=== PATIENT | female | born 1975 | race Hispanic/Latino ===

== ENCOUNTER 2020-02-29 21:22 | Emergency (ER) | payer BC ==
--- OUTSIDE RECORDS SUMMARY | 2020-02-29 21:24 | XMS REPORT | Continuity of Care Document ---
:1975 Author Organization [facility] t Address [address] [place] [address] Care Team Providers Name Role Phone Unavailable Unavailable Unavailable Payers Payer Name Policy Type Policy Number Effective Date Expiration Date S ource Problems This patient has no known problems. Allergies, Adverse Reactions, Alerts Allergy Allergy Status Severity Reaction(s) Onset Inactive Treating Comm ents Source Name Type Date Date Clinician No Known DA Active U [facility] 00:00: d [facility] 00 [facility] Medications This patient has no known medications. Procedures This patient has no known procedures. Results This patient has no known results.
--- NOTE | 2020-02-29 22:13 | RAD REPORT ---
EXAM DESCRIPTION: RAD - Chest Single View - 02/29/2020 10:04 pm CLINICAL HISTORY: CHEST PAIN Chest pain. COMPARISON: No comparisons FINDINGS: Portable technique limits examination quality. The lungs are grossly clear. The heart is normal in size. No displaced fractures. IMPRESSION: No acute intrathoracic process suspected.
[2020-02-29 22:22] LABS: Protime INR 0.95
[2020-02-29 22:39] LABS: ALT/SGPT 25 U/L (12-78); AST/SGOT 17 U/L (15-37); Albumin 3.7 g/dL (3.4-5.0); Alkaline Phosphatase 113 U/L (45-117); BUN Blood Urea Nitrogen 11 mg/dL (7-18); Bicarbonate 26 mmol/L (21-32); Bilirubin Direct 0.1 mg/dL (0-0.2); Bilirubin Total 0.6 mg/dL (0.2-1.0); Glucose Level 84 mg/dL (74-106); Magnesium 2.4 mg/dL (1.8-2.4); NT PRO-BNP 42 pg/mL (<125); Potassium 3.4 mmol/L (3.5-5.1); Protein, Total 7.8 g/dL (6.4-8.2); Sodium Level 138 mmol/L (136-145); Troponin (Emerg Dept Use Only) < 0.02 ng/mL (0.0-0.045)
[2020-02-29 23:06] LABS: Absolute Lymphocytes (CBC) 1.4 K/uL (0.7-4.9); Basophils % 0.8 % (0-1.3); Hematocrit 41.3 % (36.0-45.0); Lymphocytes % 22.1 % (15.3-44.8); MPV 11.3 fL (7.6-11.3); RBC Red Blood Cell Count 4.76 M/uL (3.86-4.86)
--- NOTE | 2020-03-01 02:45 | ER ---
Nurse's Notes [facility] Name: Whit Fowler Age: 44 yrs Sex: Female : 1975 Arrival Date: 02/29/2020 Time: 21:27 Bed 8 Private MD: Diagnosis: Chest pain, unspecified Presentation: 02/28 21:30 Chief complaint: Patient states: L sided chest pain started today at 1100. Has ca1 progressed throughout the day. Intermittent, non-radiating, described as burning has been frequent in the last 2 hours. Denies injury to chest. Denies history of heart conditions. Denies cough. Coronavirus screen: Client denies travel out of the [place] in the last 14 days. At this time, the client does not indicate any symptoms associated with coronavirus-19. The client denies any previous COVID testing. Ebola Screen: Patient negative for fever greater than or equal to 101.5 degrees Fahrenheit, and additional compatible Ebola Virus Disease symptoms Patient denies exposure to infectious person. Patient denies travel to an Ebola-affected area in the 21 days before illness onset. No symptoms or risks identified at this time. Initial Sepsis Screen: Does the patient meet any 2 criteria? No. Patient's initial sepsis screen is negative. Does the patient have a suspected source of infection? No. Patient's initial sepsis screen is negative. Risk Assessment: Do you want to hurt yourself or someone else? Patient reports no desire to harm self or others. Onset of symptoms was February 29, 2020. 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 - Social history:: Smoking status: Patient reports the use of cigarette tobacco products, denies chronic smoking, but will smoke occasionally. Screenin:45 Abuse screen: Denies threats or abuse. Nutritional screening: No deficits noted. jb4 Tuberculosis screening: No symptoms or risk factors identified. Fall Risk None identified. Assessment: 21:45 General: Appears in no apparent distress. comfortable, Behavior is calm, cooperative, jb4 appropriate for age. Pain: Complains of pain in chest Pain does not radiate. Pain currently is 0 out of 10 on a pain scale. Quality of pain is described as dull, Pain began 11:00 Is intermittent. Neuro: Level of Consciousness is awake, alert, obeys commands, Oriented to person, place, time, situation. Cardiovascular: Patient's skin is warm and dry. Rhythm is sinus rhythm. Respiratory: Airway is patent Respiratory effort is even, unlabored, Respiratory pattern is regular, symmetrical. GI: No signs and/or symptoms were reported involving the gastrointestinal system. : No signs and/or symptoms were reported regarding the genitourinary system. EENT: No signs and/or symptoms were reported regarding the EENT system. Derm: Skin is intact, Skin is pink, warm \T\ dry. Musculoskeletal: Circulation, motion, and sensation intact. Range of motion: intact in all extremities. 23:00 Reassessment: Patient appears in no apparent distress at this time. Patient and/or jb4 family updated on plan of care and expected duration. Pain level reassessed. Patient is alert, oriented x 3, equal unlabored respirations, skin warm/dry/pink. PT reports that the provider has not yet been in to see her. Provider informed that all lab results and radiology results are back and asked to speak with the patient. 23:58 Reassessment: Patient appears in no apparent distress at this time. Patient and/or jb4 family updated on plan of care and expected duration. Pain level reassessed. Patient is alert, oriented x 3, equal unlabored respirations, skin warm/dry/pink. PT ambulated to and from restroom with steady gait. 03/01 01:00 Reassessment: Patient appears in no apparent distress at this time. Patient and/or jb4 family updated on plan of care and expected duration. Pain level reassessed. Patient is alert, oriented x 3, equal unlabored respirations, skin warm/dry/pink. 02:00 Reassessment: Patient appears in no apparent distress at this time. Patient and/or jb4 family updated on plan of care and expected duration. Pain level reassessed. Patient is alert, oriented x 3, equal unlabored respirations, skin warm/dry/pink. 02:53 Reassessment: Patient appears in no apparent distress at this time. Patient and/or jb4 family updated on plan of care and expected duration. Pain level reassessed. Patient is alert, oriented x 3, equal unlabored respirations, skin warm/dry/pink. Vital Signs: 02/28 21:30 BP 136 / 107; Pulse 78; Resp 16 S; Temp 97.4(TE); Pulse Ox 99% on R/A; Weight 87.09 kg ca1 (R); Height 5 ft. 3 in. (160.02 cm) (R); Pain 0/10; 22:15 BP 135 / 106; Pulse 84; Resp 17; Pulse Ox 98% on R/A; jb4 23:00 BP 130 / 101; Pulse 80; Resp 16; Pulse Ox 97% on R/A; jb4 03/01 00:00 BP 137 / 97; Pulse 74; Resp 14; Pulse Ox 98% on R/A; jb4 01:10 BP 137 / 96; Pulse 81; Resp 20; Pulse Ox 98% on R/A; ll2 02:00 BP 136 / 94; Pulse 66; Resp 18; Pulse Ox 94% on R/A; jb4 02/28 21:30 Body Mass Index 34.01 (87.09 kg, 160.02 cm) ca1 ED Course: 02/28 21:27 Patient arrived in ED. am2 21:33 Triage completed. ca1 21:34 Arm band placed on right wrist. ca1 21:45 Patient has correct armband on for positive identification. Placed in gown. Bed in low jb4 position. Call light in reach. Side rails up X 1. electronic device monitor on. Pulse ox on. NIBP on. 21:45 Patient maintains SpO2 saturation greater than 95% on room air. jb4 21:47 Dario Ferro, RN is Primary Nurse. jb4 22:04 XRAY Chest (1 view) In Process Unspecified. EDMS 22:14 Initial lab(s) drawn, by me, sent to lab. Inserted saline lock: 20 gauge in right jb4 forearm, using aseptic technique. Blood collected. 22:33 Lex Galloway MD is Attending Physician. 7 23:57 CT Chest For PE Angio In Process Unspecified. EDMS 03/01 01:00 No provider procedures requiring assistance completed. IV discontinued, intact, jb4 bleeding controlled, No redness/swelling at site. Pressure dressing applied. Administered Medications: 02/28 23:25 CANCELLED (Other Intervention Used): Tylenol 1000 mg PO once [facility] 23:27 Not Given (Patient Refused): morphine 2 mg IVP once; RASS on ADMIN: Combtv4, Very jb4 Agttd3, Agttd2, Rstlss1, AlertClm0, Drwsy-1, Lt Sdtn-2, Mod Sdtn-3, Dp Sdtn-4, UnArsble-5 23:27 Not Given (Patient Refused): Zofran (Ondansetron) 4 mg IVP once; over 2 minutes jb4 Outcome: 03/01 02:45 Discharge ordered by . [facility] 02:57 Discharged to home ambulatory. jb4 02:57 Condition: stable 02:57 Discharge instructions given to patient, Instructed on discharge instructions, follow up and referral plans. Demonstrated understanding of instructions, follow-up care. 02:57 Patient left the ED. jb4 Signatures: Dispatcher [employer] EDMS Dario Ferro RN RN jb4 Gloria Sales am2 Brittni Mallory RN RN ca1 Nohemi Mas RN RN 2 Lex Galloway MD MD 7 Corrections: (The following items were deleted from the chart) 02/28 23:23 23:00 Reassessment: Patient appears in no apparent distress at this time. Patient jb4 and/or family updated on plan of care and expected duration. Pain level reassessed. Patient is alert, oriented x 3, equal unlabored respirations, skin warm/dry/pink. jb4
--- NOTE | 2020-03-01 02:45 | EDPHYS ---
Physician Documentation [facility] Name: Whit Fowler Age: 44 yrs Sex: Female : 1975 Arrival Date: 02/29/2020 Time: 21:27 Bed 8 Private MD: ED Physician Lex Galloway HPI: 02/28 23:41 This 44 yrs old Female presents to ER via Ambulatory with complaints of Chest mh7 Pain > 30 y/o. 23:41 The patient or guardian reports chest pain that is located primarily in the anterior mh7 chest wall, left. 23:52 Onset: today, at 11:00. The pain does not radiate. Associated signs and symptoms: 7 Pertinent negatives: abdominal pain, cough, diaphoresis, dizziness, headache, lower extremity pain, lower extremity swelling, lightheadedness, nausea, near syncope, palpitations, recent travel, shortness of breath, syncope, vomiting. The chest pain is described as dull. The chest pain is described as sharp. Duration: The patient or guardian reports multiple episodes, that are intermittent, that wax and wane, with no pattern. Modifying factors: The symptoms are alleviated by nothing. the symptoms are aggravated by nothing. Severity of pain: At its worst the pain was moderate today, in the emergency department the pain has improved moderately. 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 - Social history:: Smoking status: Patient reports the use of cigarette tobacco products, denies chronic smoking, but will smoke occasionally. ROS: 23:52 Constitutional: Negative for fever, chills, and weight loss, Eyes: Negative for injury, mh7 pain, redness, and discharge, ENT: Negative for injury, pain, and discharge, Neck: Negative for injury, pain, and swelling, Respiratory: Negative for shortness of breath, cough, wheezing, and pleuritic chest pain, Abdomen/GI: Negative for abdominal pain, nausea, vomiting, diarrhea, and constipation, Back: Negative for injury and pain, : Negative for injury, bleeding, discharge, and swelling, MS/Extremity: Negative for injury and deformity, Skin: Negative for injury, rash, and discoloration, Neuro: Negative for headache, weakness, numbness, tingling, and seizure, Psych: Negative for depression, anxiety, suicide ideation, homicidal ideation, and hallucinations, Allergy/Immunology: Negative for hives, rash, and allergies, Endocrine: Negative for neck swelling, polydipsia, polyuria, polyphagia, and marked weight changes, Hematologic/Lymphatic: Negative for swollen nodes, abnormal bleeding, and unusual bruising. Exam: 23:52 Constitutional: This is a well developed, well nourished patient who is awake, alert, mh7 and in no acute distress. Head/Face: Normocephalic, atraumatic. Eyes: Pupils equal round and reactive to light, extra-ocular motions intact. Lids and lashes normal. Conjunctiva and sclera are non-icteric and not injected. Cornea within normal limits. Periorbital areas with no swelling, redness, or edema. Neck: Trachea midline, no thyromegaly or masses palpated, and no cervical lymphadenopathy. Supple, full range of motion without nuchal rigidity, or vertebral point tenderness. No Meningismus. Chest/axilla: Normal chest wall appearance and motion. Nontender with no deformity. No lesions are appreciated. Cardiovascular: Regular rate and rhythm with a normal S1 and S2. No gallops, murmurs, or rubs. Normal PMI, no JVD. No pulse deficits. Respiratory: Lungs have equal breath sounds bilaterally, clear to auscultation and percussion. No rales, rhonchi or wheezes noted. No increased work of breathing, no retractions or nasal flaring. Abdomen/GI: Soft, non-tender, with normal bowel sounds. No distension or tympany. No guarding or rebound. No evidence of tenderness throughout. Back: No spinal tenderness. No costovertebral tenderness. Full range of motion. Skin: Warm, dry with normal turgor. Normal color with no rashes, no lesions, and no evidence of cellulitis. MS/ Extremity: Pulses equal, no cyanosis. Neurovascular intact. Full, normal range of motion. Neuro: Awake and alert, GCS 15, oriented to person, place, time, and situation. Cranial nerves II-XII grossly intact. Motor strength 5/5 in all extremities. Sensory grossly intact. Cerebellar exam normal. Normal gait. Psych: Awake, alert, with orientation to person, place and time. Behavior, mood, and affect are within normal limits. Vital Signs: 21:30 BP 136 / 107; Pulse 78; Resp 16 S; Temp 97.4(TE); Pulse Ox 99% on R/A; Weight 87.09 kg ca1 (R); Height 5 ft. 3 in. (160.02 cm) (R); Pain 0/10; 22:15 BP 135 / 106; Pulse 84; Resp 17; Pulse Ox 98% on R/A; jb4 23:00 BP 130 / 101; Pulse 80; Resp 16; Pulse Ox 97% on R/A; jb4 03/01 00:00 BP 137 / 97; Pulse 74; Resp 14; Pulse Ox 98% on R/A; jb4 01:10 BP 137 / 96; Pulse 81; Resp 20; Pulse Ox 98% on R/A; ll2 02:00 BP 136 / 94; Pulse 66; Resp 18; Pulse Ox 94% on R/A; jb4 02/28 21:30 Body Mass Index 34.01 (87.09 kg, 160.02 cm) ca1 MDM: 02/28 23:22 Patient medically screened. [facility] 03/01 02:42 Differential diagnosis: acute myocardial infarction, acute pericarditis, anxiety, [facility] coronary artery disease chest wall pain, congestive heart failure costochondritis, myocarditis, pericarditis, pneumonia, pneumothorax, pulmonary embolus. HEART Score: History: Slightly Suspicious (0), ECG: Normal (0), Age: > 45 and < 65 years (1), Risk Factors: 1 or 2 risk factors (1), [Hypertension] Troponin: < or = 1 x Normal Limit (0), Total Score = 2. Data reviewed: vital signs, nurses notes, lab test result(s), cardiac enzymes, CBC, electrolytes, urinalysis, EKG, radiologic studies, CT scan, plain films. Data interpreted: Pulse oximetry: on room air is 95 %. Interpretation: normal. Counseling: I had a detailed discussion with the patient and/or guardian regarding: the historical points, exam findings, and any diagnostic results supporting the discharge/admit diagnosis, the presence of at least one elevated blood pressure reading (>120/80) during this emergency department visit, lab results, radiology results, the need for outpatient follow up, to return to the emergency department if symptoms worsen or persist or if there are any questions or concerns that arise at home. 02/28 21:48 Order name: Basic Metabolic Panel; Complete Time: 23:02 [facility] 02/28 21:48 Order name: CBC with Diff; Complete Time: 23:23 [facility] 02/28 21:48 Order name: LFT's; Complete Time: 23:02 [facility] 02/28 21:48 Order name: Magnesium; Complete Time: 23:02 [facility] 02/28 21:48 Order name: NT PRO-BNP; Complete Time: 23:02 [facility] 02/28 21:48 Order name: PT-INR; Complete Time: 00:01 [facility] 02/28 21:48 Order name: Troponin (emerg Dept Use Only); Complete Time: 23:02 [facility] 02/28 21:48 Order name: XRAY Chest (1 view); Complete Time: 23:02 [facility] 02/28 23:26 Order name: CT Chest For PE Angio [facility] 02/28 23:30 Order name: D-Dimer; Complete Time: 00:01 [facility] 03/01 01:16 Order name: Troponin I; Complete Time: 02:36 [facility] 02/28 21:48 Order name: EKG; Complete Time: 21:49 [facility] 02/28 21:48 Order name: Cardiac monitoring; Complete Time: 21:58 [facility] 02/28 21:48 Order name: EKG - Nurse/Tech; Complete Time: 21:58 [facility] 02/28 21:48 Order name: IV Saline Lock; Complete Time: 22:14 [facility] 02/28 21:48 Order name: Labs collected and sent; Complete Time: 22:14 [facility] 02/28 21:48 Order name: O2 Per Protocol; Complete Time: 21:58 [facility] 02/28 21:48 Order name: O2 Sat Monitoring; Complete Time: 21:59 jb4 Administered Medications: 02/28 23:25 CANCELLED (Other Intervention Used): Tylenol 1000 mg PO once [facility] 23:27 Not Given (Patient Refused): morphine 2 mg IVP once; RASS on ADMIN: Combtv4, Very jb4 Agttd3, Agttd2, Rstlss1, AlertClm0, Drwsy-1, Lt Sdtn-2, Mod Sdtn-3, Dp Sdtn-4, UnArsble-5 23:27 Not Given (Patient Refused): Zofran (Ondansetron) 4 mg IVP once; over 2 minutes jb4 Disposition: 03/01/20 02:45 Discharged to Home. Impression: Chest pain, unspecified. - Condition is Stable. - Discharge Instructions: Nonspecific Chest Pain, [id number]. - Medication Reconciliation Form, Thank You Letter, Antibiotic Education, Prescription Opioid Use form. - Follow up: Private Physician; When: 1 - 2 days; Reason: Worsening of condition, Recheck today's complaints, Continuance of care, Re-evaluation by your physician. - Problem is new. - Symptoms have improved. Signatures: Dispatcher [employer] [facility] Dario Ferro RN RN jb4 Brittni Mallory RN RN ca1 Lex Galloway MD MD mh7 Corrections: (The following items were deleted from the chart) 23:25 23:24 Tylenol 1000 mg PO once ordered. [place] [id number] 23:30 23:24 D-DIMER+COAG.LAB.BRZ ordered. [facility] 03/01 02:57 02:45 03/01/2020 02:45 Discharged to Home. Impression: Chest pain, unspecified. jb4 Condition is Stable. Forms are Medication Reconciliation Form, Thank You Letter, Antibiotic Education, Prescription Opioid Use. Follow up: Private Physician; When: 1 - 2 days; Reason: Worsening of condition, Recheck today's complaints, Continuance of care, Re-evaluation by your physician. Problem is new. Symptoms have improved. 7
[2020-03-01 03:16] VITALS: TEMP 97.4
[2020-03-01 03:27] VITALS: BP 136/94; O2SAT 94
--- NOTE | 2020-03-01 15:38 | RAD REPORT ---
EXAM DESCRIPTION: Chest For Pe Angio CLINICAL HISTORY: 44 years Female CHEST PAIN COMPARISON: None. TECHNIQUE: Contiguous axial images obtained through the chest during the infusion of IV contrast. Re formatted images obtained. MIP reformatted images obtained. This exam was performed according to our department optimization program which includes automated exp osure control, adjustment of the mA and/or kv according to patient size and/or use of iterative recon struction technique. FINDINGS: The posterior inferior lung bases are incompletely imaged. The visualized upper abdominal organs appear unremarkable. No pericardial effusion. The mediastinum appears unremarkable. No aneurysmal dilatation of the thoracic aorta. No pulmonary emboli are identified. Mild atelectatic changes. No consolidating infiltrates or pleural effusions. No pneumothorax. IMPRESSION: No pulmonary emboli are identified. Electronically signed by: Mac Waldron MD 03/01/2020 12:13 AM CDT Due to temporary technical issues with the PACS/Fluency reporting system, reports are being signed by the in house radiologist without review as a courtesy to ensure prompt reporting. The interpreting r adiologist is fully responsible for the content of the report.
--- NOTE | 2020-03-02 07:15 | EKG ---
Test Date: 2020-02-29 Test Time: 21:59:09 Collections Curator: URSULA MEASUREMENT RESULTS: Intervals: Rate: 67 LA: 164 QRSD: 80 QT: 418 QTc: 441 [place]: P: 49 LA: 164 QRS: 41 T: 44 INTERPRETIVE STATEMENTS: Normal sinus rhythm Normal ECG No previous ECG available for comparison Electronically Signed On 03-02-20 07:13:42 CDT by Goldy Kearns
== END 2020-03-01 02:57 | disposition home or self-care (01) ==
LOC: ER 21:22
DX: R07.9 Chest pain, unspecified (principal); I10 Essential (primary) hypertension; F17.210 Nicotine dependence, cigarettes, uncomplicated
CPT/HCPCS: 93005; 85025; 80048; 36415; 83735; 85610; 85379; 80076; 84484 ×2; 83880; 71275; 71045; 99285; Q9967

== ENCOUNTER 2020-11-18 00:09 | Emergency (ER) | payer BC ==
--- OUTSIDE RECORDS SUMMARY | 2020-11-18 00:15 | XMS REPORT | Continuity of Care Document ---
:1975 Author Organization [facility] t Address [address] [place] [address] Care Team Providers Name Role Phone Lab, [facility] Pankaj I Attending Clinician Unavailable Chidi Carr PA-C Attending Clinician Payers Payer Name Policy Type Policy Number Effective Date Expiration Date S ource Problems This patient has no known problems. Allergies, Adverse Reactions, Alerts Allergy Allergy Status Severity Reaction(s) Onset Inactive Treating Comm ents Source Name Type Date Date Clinician No Known DA Active U [facility] 2[facility]20 [facility] 00:00: d [address] Medications This patient has no known medications. Procedures This patient has no known procedures. 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
[2020-11-18] MEDS ORDERED: ALBUTEROL INHALER 60 PUFF/8 GM IH ONE (00:59)
[2020-11-18] MEDS ORDERED: HYDROCODONE/CHLORPHEN 5 ML/OSYR ONE (00:59)
--- NOTE | 2020-11-18 01:22 | ER ---
Nurse's Notes [facility] Name: Whit Folwer Age: 45 yrs Sex: Female : 1975 Arrival Date: 11/18/2020 Time: 00:10 Bed 6 Private MD: Diagnosis: Cough;Pneumonia due to SARS-associated coronavirus Presentation: 11/18 00:27 Chief complaint: Patient states: Reports being diagnosed with covid Saturday reported she ea started getting really short of breath today. States it's worse when she is still. Coronavirus screen: shortness of breath, Client presents with at least one sign or symptom that may indicate coronavirus-19. Ebola Screen: No symptoms or risks identified at this time. Initial Sepsis Screen: Does the patient meet any 2 criteria? No. Patient's initial sepsis screen is negative. Does the patient have a suspected source of infection? No. Patient's initial sepsis screen is negative. Risk Assessment: Do you want to hurt yourself or someone else? Patient reports no desire to harm self or others. Onset of symptoms was November 18, 2020. 00:27 Method Of Arrival: Ambulatory ea 00:27 Acuity: TIEN 3 ea Triage Assessment: 00:33 General: Appears uncomfortable, Behavior is appropriate for age. Pain: Complains of ea pain in sore throat. Respiratory: Reports shortness of breath at rest Onset: The symptoms/episode began/occurred today, the patient has mild shortness of breath. 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 - Social history:: Smoking status: Patient denies any tobacco usage or history of. Screenin:31 Abuse screen: Denies threats or abuse. Nutritional screening: No deficits noted. ea Tuberculosis screening: No symptoms or risk factors identified. Fall Risk None identified. Assessment: 00:34 General: Appears uncomfortable, Behavior is appropriate for age. Neuro: Level of ea Consciousness is awake, alert, obeys commands, Oriented to person, place, time. Cardiovascular: Patient's skin is warm and dry. Respiratory: Airway is patent Respiratory effort is even, unlabored, Respiratory pattern is regular, symmetrical, Parent/caregiver reports the patient having shortness of breath. Derm: Skin is pink, warm \T\ dry. 01:30 Reassessment: Patient and/or family updated on plan of care and expected duration. Pain ea level reassessed. Patient is alert, oriented x 3, equal unlabored respirations, skin warm/dry/pink. Discharge instruction given to patient verbalized the understanding of instruction. Pt left ED ambulatory accompanied by family. Vital Signs: 00:27 BP 127 / 93; Pulse 93; Resp 20; Temp 98.7; Pulse Ox 95% on R/A; Weight 86.18 kg; Height ea 5 ft. 3 in. (160.02 cm); 01:31 BP 125 / 60; Pulse 88; Resp 18; Pulse Ox 98% on R/A; ea 00:27 Body Mass Index 33.66 (86.18 kg, 160.02 cm) ea ED Course: 00:10 Patient arrived in ED. bp1 00:12 Solo Cochran PA is PHCP. jr8 00:12 Jose Holland MD is Attending Physician. jr8 00:27 Callie Laguna, ELIJAH is Primary Nurse. ea 00:31 Triage completed. ea 00:32 Patient has correct armband on for positive identification. Bed in low position. Call ea light in reach. Side rails up X2. 00:32 Arm band placed on right wrist. Patient placed in an exam room, on a stretcher, on ea pulse oximetry. 00:54 XRAY Chest (1 view) In Process Unspecified. EDMS 01:31 No provider procedures requiring assistance completed. Patient did not have IV access ea during this emergency room visit. Administered Medications: 00:40 Drug: Tussionex Pennkinetic ER (chlorpheniramine-hydrocodone) Suspension 5 ml Route: PO;ea 01:32 Follow up: Response: No adverse reaction ea 00:40 Drug: Albuterol HFA Inhaler 2 puffs Route: Inhalation; ea Outcome: 01:21 Discharge ordered by . jr8 01:31 Discharged to home ambulatory, with family. ea 01:31 Condition: stable 01:31 Discharge instructions given to patient, Instructed on discharge instructions, follow up and referral plans. medication usage, Demonstrated understanding of instructions, follow-up care, medications, Prescriptions given X 1. 01:31 Patient left the ED. ea Signatures: Dispatcher [employer] EDSolo Sterling PA PA jr8 Callie Laguna, RN RN Julianna Alvarez [facility]
--- NOTE | 2020-11-18 01:22 | EDPHYS ---
Physician Documentation [facility] Name: Whit Fowler Age: 45 yrs Sex: Female : 1975 Arrival Date: 11/18/2020 Time: 00:10 Bed 6 Private MD: ED Physician Jose Holland HPI: 11/18 00:48 This 45 yrs old Female presents to ER via Ambulatory with complaints of jr8 Shortness Of Breath, Sore Throat. 00:48 The patient has shortness of breath at rest. Onset: The symptoms/episode began/occurred jr8 gradually, 1 week(s) ago. Duration: The symptoms are intermittent. The patient's shortness of breath is aggravated by coughing. Associated signs and symptoms: Pertinent positives: non-productive cough, fever. Severity of symptoms: At their worst the symptoms were moderate in the emergency department the symptoms are unchanged. The patient has not experienced similar symptoms in the past. The patient has been recently seen by a physician:. Patient stated that she started with symptoms last Saturday. Was swabbed on Saturday and recently got her results as being COVID-19 positive. Has been on Zithromax and steroids which she is currently taking but still is having coughing fits that is causing her to be short of breath . 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 - Social history:: Smoking status: Patient denies any tobacco usage or history of. ROS: 00:48 Eyes: Negative for injury, pain, redness, and discharge, Neck: Negative for injury, jr8 pain, and swelling, Cardiovascular: Negative for chest pain, palpitations, and edema, Abdomen/GI: Negative for abdominal pain, nausea, vomiting, diarrhea, and constipation, Back: Negative for injury and pain, MS/Extremity: Negative for injury and deformity, Skin: Negative for injury, rash, and discoloration, Neuro: Negative for headache, weakness, numbness, tingling, and seizure. 00:48 Constitutional: Positive for body aches, fatigue, fever. 00:48 ENT: Positive for sore throat. 00:48 Respiratory: Positive for cough, shortness of breath. Exam: 00:48 Constitutional: This is a well developed, well nourished patient who is awake, alert, jr8 and in no acute distress. Eyes: Pupils equal round and reactive to light, extra-ocular motions intact. Lids and lashes normal. Conjunctiva and sclera are non-icteric and not injected. Cornea within normal limits. Periorbital areas with no swelling, redness, or edema. ENT: Nares patent. No nasal discharge, no septal abnormalities noted. Tympanic membranes are normal and external auditory canals are clear. Oropharynx with no redness, swelling, or masses, exudates, or evidence of obstruction, uvula midline. Mucous membranes moist. Neck: Trachea midline, no thyromegaly or masses palpated, and no cervical lymphadenopathy. Supple, full range of motion without nuchal rigidity, or vertebral point tenderness. No Meningismus. Cardiovascular: Regular rate and rhythm with a normal S1 and S2. No gallops, murmurs, or rubs. Normal PMI, no JVD. No pulse deficits. Respiratory: Lungs have equal breath sounds bilaterally. Mild expiratory wheezing noted on right upper lung field. No increased work of breathing, no retractions or nasal flaring. Abdomen/GI: Soft, non-tender, with normal bowel sounds. No distension or tympany. No guarding or rebound. No evidence of tenderness throughout. Back: No spinal tenderness. No costovertebral tenderness. Full range of motion. Skin: Warm, dry with normal turgor. Normal color with no rashes, no lesions, and no evidence of cellulitis. MS/ Extremity: Pulses equal, no cyanosis. Neurovascular intact. Full, normal range of motion. Neuro: Awake and alert, GCS 15, oriented to person, place, time, and situation. Cranial nerves II-XII grossly intact. Motor strength 5/5 in all extremities. Sensory grossly intact. Vital Signs: 00:27 BP 127 / 93; Pulse 93; Resp 20; Temp 98.7; Pulse Ox 95% on R/A; Weight 86.18 kg; Height ea 5 ft. 3 in. (160.02 cm); 01:31 BP 125 / 60; Pulse 88; Resp 18; Pulse Ox 98% on R/A; ea 00:27 Body Mass Index 33.66 (86.18 kg, 160.02 cm) ea MDM: 00:12 Patient medically screened. jr8 00:52 Data reviewed: vital signs, nurses notes, radiologic studies, plain films. Data jr8 interpreted: Pulse oximetry: on room air is 95 %. Interpretation: normal. Counseling: I had a detailed discussion with the patient and/or guardian regarding: the historical points, exam findings, and any diagnostic results supporting the discharge/admit diagnosis, radiology results, the need for outpatient follow up, a family practitioner, to return to the emergency department if symptoms worsen or persist or if there are any questions or concerns that arise at home. 01:19 ED course: Patient feeling much better. VS stable and oxygen at or above 95%. No jr8 shortness of breath at this time and cough has improved. Will send home on cough medicine. Patient has Spo2 monitor at home and will continue to monitor that as well. Knows to come back if worse . 11/18 00:22 Order name: XRAY Chest (1 view) jr8 Administered Medications: 00:40 Drug: Tussionex Pennkinetic ER (chlorpheniramine-hydrocodone) Suspension 5 ml Route: PO;ea 01:32 Follow up: Response: No adverse reaction ea 00:40 Drug: Albuterol HFA Inhaler 2 puffs Route: Inhalation; ea Disposition: 02:02 Co-signature as Attending Physician, Jose Holland MD. rn Disposition Summary: 11/18/20 01:21 Discharge Ordered Location: Home jr8 Problem: new jr8 Symptoms: have improved jr8 Condition: Stable jr8 Diagnosis - Cough jr8 - Pneumonia due to SARS-associated coronavirus jr8 Followup: jr8 - With: Private Physician - When: 2 - 3 days - Reason: Recheck today's complaints, Continuance of care, Re-evaluation by your physician Discharge Instructions: - Discharge Summary Sheet jr8 - Cough, Adult jr8 - COVID-19 jr8 Forms: - Medication Reconciliation Form jr8 - Thank You Letter jr8 - Antibiotic Education jr8 - Prescription Opioid Use jr8 Prescriptions: - promethazine-DM 6.25-15 mg/5 mL Oral syrup - take 5 milliliter by ORAL route every 4-6 hours as needed, not to exceed 30 mL jr8 in 24 hours; 120 milliliter; Refills: 0, Product Selection Permitted Signatures: Dispatcher [employer] EDJose Michaud MD MD rn Solo Cochran PA PA jr8 Callie Laguna RN RN ea
[2020-11-18 01:37] VITALS: TEMP 98.7
[2020-11-18 01:38] VITALS: BP 125/60; O2SAT 98
--- NOTE | 2020-11-18 08:37 | RAD REPORT ---
EXAM DESCRIPTION: RAD - Chest Single View - 11/18/2020 12:54 am CLINICAL HISTORY: covid;Cough Chest pain. COMPARISON: Chest Single View dated 02/29/2020 FINDINGS: Portable technique limits examination quality. Mild bilateral interstitial lung opacities are present most compatible with viral infection/ bronchit is. The heart is normal in size. No displaced fractures.
== END 2020-11-18 01:31 | disposition home or self-care (01) ==
LOC: ER 00:09
DX: U07.1 COVID-19 (principal); J12.82 Pneumonia due to coronavirus disease 2019; I10 Essential (primary) hypertension
CPT/HCPCS: 71045; 99284

== ENCOUNTER 2020-11-20 13:31 | Inpatient (IN) | payer BC ==
--- OUTSIDE RECORDS SUMMARY | 2020-11-20 13:47 | XMS REPORT | Continuity of Care Document ---
:1975 Author Organization [facility] t Address [address] [place] [address] Care Team Providers Name Role Phone Lab, [facility] Pankaj I Attending Clinician Unavailable Chidi Carr PA-C Attending Clinician Payers Payer Name Policy Type Policy Number Effective Date Expiration Date S ource Problems This patient has no known problems. Allergies, Adverse Reactions, Alerts Allergy Allergy Status Severity Reaction(s) Onset Inactive Treating Comm ents Source Name Type Date Date Clinician No Known DA Active U [facility] 2[facility]20 [place] [facility] 00:00: d [address] Medications This patient has no known medications. Procedures This patient has no known procedures. 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
[2020-11-20 17:04] LABS: Protime INR 1.07
[2020-11-20 17:05] LABS: Absolute Lymphocytes (CBC) 0.6 K/uL (0.7-4.9); Basophils % 0.1 % (0-1.3); Hematocrit 38.5 % (36.0-45.0); Lymphocytes % 7.8 % (15.3-44.8); MPV 10.3 fL (7.6-11.3)
[2020-11-20 17:14] LABS: ALT/SGPT 89 U/L (12-78); AST/SGOT 83 U/L (15-37); Albumin 3.1 g/dL (3.4-5.0); Alkaline Phosphatase 167 U/L (45-117); BUN Blood Urea Nitrogen 11 mg/dL (7-18); Bicarbonate 29 mmol/L (21-32); Bilirubin Direct 0.1 mg/dL (0-0.2); Bilirubin Total 0.6 mg/dL (0.2-1.0); Glucose Level 95 mg/dL (74-106); Magnesium 2.4 mg/dL (1.8-2.4); NT PRO-BNP 77 pg/mL (<125); Potassium 4.1 mmol/L (3.5-5.1); Protein, Total 7.5 g/dL (6.4-8.2); Sodium Level 137 mmol/L (136-145); Troponin (Emerg Dept Use Only) < 0.02 ng/mL (0.0-0.045)
[2020-11-20] MEDS ORDERED: ONDANSETRON 4 MG/2 ML VIAL IV PRN (17:30)
[2020-11-20] MEDS ORDERED: ALBUTEROL INHALER 60 PUFF/8 GM IH PRN (17:30)
[2020-11-20] MEDS ORDERED: ACETAMINOPHEN 500 MG TAB PO PRN (17:30)
--- NOTE | 2020-11-20 17:45 | ER ---
Nurse's Notes [facility] Name: Whit Fowler Age: 45 yrs Sex: Female : 1975 Arrival Date: 11/20/2020 Time: 13:32 Bed 20 Private MD: Diagnosis: Shortness of breath;Pneumonia due to SARS-associated coronavirus Presentation: 11/20 13:52 Chief complaint: Patient states: Covid+ 11/14/2020. Was here Saturday and was prescribed ca1 Albuterol and cough medicines. Today, just not feeling well, feeling worse. Feels weak, SOB, reports chest pains x 3 days, hurts to breathe. Coronavirus screen: Client reports previous positive COVID test result. Date of collection: November 14, 2020 Staff notified of need for isolation. Ebola Screen: Patient negative for fever greater than or equal to 101.5 degrees Fahrenheit, and additional compatible Ebola Virus Disease symptoms Patient denies exposure to infectious person. Patient denies travel to an Ebola-affected area in the 21 days before illness onset. No symptoms or risks identified at this time. Initial Sepsis Screen: Does the patient meet any 2 criteria? No. Patient's initial sepsis screen is negative. Does the patient have a suspected source of infection? No. Patient's initial sepsis screen is negative. Risk Assessment: Do you want to hurt yourself or someone else? Patient reports no desire to harm self or others. 13:52 Method Of Arrival: Ambulatory ca1 13:52 Acuity: TIEN 3 ca1 19:57 Onset of symptoms was November 14, 2020. 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 Flu vaccine is up to date. - Social history:: Smoking status: Patient denies any tobacco usage or history of. Screenin:36 Abuse screen: Denies threats or abuse. Denies injuries from another. Nutritional kg screening: No deficits noted. Tuberculosis screening: No symptoms or risk factors identified. Fall Risk No fall in past 12 months (0 pts). No secondary diagnosis (0 pts). IV access (20 points). Ambulatory Aid- None/Bed Rest/Nurse Assist (0 pts). Gait- Normal/Bed Rest/Wheelchair (0 pts) Mental Status- Oriented to own ability (0 pts). Total Liu Fall Scale indicates No Risk (0-24 pts). Assessment: 16:31 General: Appears distressed, uncomfortable, Behavior is appropriate for age, anxious. kg Pain: Complains of pain in chest Pain currently is 8 out of 10 on a pain scale. at worst was 10 out of 10 on a pain scale. level that patient reports is acceptable is 3 out of 10 on a pain scale. Quality of pain is described as burning, aching. Neuro: No deficits noted. Cardiovascular: No deficits noted. Heart tones S1 S2 Capillary refill < 3 seconds. Respiratory: Reports shortness of breath at rest on exertion cough that is productive, Airway is patent Trachea midline Respiratory effort is even, labored, Respiratory pattern is symmetrical, Sputum is thick, clear white Breath sounds with crackles in left posterior lower lobe, right posterior middle lobe and right posterior lower lobe the patient has moderate shortness of breath. GI: Bowel sounds present X 4 quads. Reports diarrhea, nausea. : No deficits noted. EENT: Reports difficulty swallowing. Musculoskeletal: Reports weakness in Generalized. Vital Signs: 13:52 BP 107 / 81; Pulse 86; Resp 18 S; Temp 98.8(TE); Pulse Ox 97% on R/A; Weight 88.9 kg ca1 (M); Height 5 ft. 3 in. (160.02 cm) (R); Pain 8/10; 16:30 BP 104 / 73; Pulse 85; Resp 20; Pulse Ox 97% on 2 lpm NC; kg 17:00 BP 110 / 76; Pulse 84; Resp 20; Pulse Ox 96% on R/A; kg 17:30 BP 90 / 78; Pulse 84; Resp 20; Pulse Ox 95% on 2 lpm NC; kg 18:00 BP 106 / 76; Pulse 85; Resp 20; Pulse Ox 97% on R/A; kg 18:30 BP 116 / 84; Pulse 85; Resp 20; Pulse Ox 100% ; kg 19:00 BP 107 / 79; Pulse 83; Resp 20; Pulse Ox 100% ; kg 13:52 Body Mass Index 34.72 (88.90 kg, 160.02 cm) ca1 ED Course: 13:32 Patient arrived in ED. ds1 13:55 Triage completed. ca1 13:55 Arm band placed on right wrist. ca1 16:09 Braeden Rodas NP is PHCP. pm1 16:09 Wilberto Dennis MD is Attending Physician. pm1 16:16 Adela Lindsey, RN is Primary Nurse. kg 16:31 Inserted saline lock: 20 gauge in right antecubital area, using aseptic technique. kg 16:37 Patient has correct armband on for positive identification. Bed in low position. Call kg light in reach. Side rails up X2. Adult w/ patient. 16:37 No provider procedures requiring assistance completed. kg 17:43 Mary Carr MD is Hospitalizing Provider. pm1 18:38 Ferritin Sent. kg 18:38 Ferritin Sent. kg 18:38 C-Reactive Protein Sent. kg 18:38 CBC with Automated Diff Sent. kg 18:38 CBC with Automated Diff Sent. kg 18:38 Comprehensive Metabolic Panel Sent. kg 18:39 C-Reactive Protein Sent. kg 18:39 Comprehensive Metabolic Panel Sent. kg 18:39 CT Chest For PE Angio Sent. kg 18:39 XRAY Chest (1 view) Sent. kg 18:39 Basic Metabolic Panel Sent. kg 19:56 Report given to Edu NAVA ICU. kg Administered Medications: 18:10 Drug: Rocephin (cefTRIAXone) 1 grams Route: IV; Rate: per protocol; Site: right kg antecubital; 18:10 Drug: Aspirin Chewable Tablet 324 mg Route: PO; kg 18:10 Drug: Tussionex Pennkinetic ER (chlorpheniramine-hydrocodone) Suspension 5 ml Route: PO;kg 18:18 Drug: Decadron - Dexamethasone 10 mg Route: IVP; Site: right antecubital; kg 18:20 Drug: Pepcid (famotidine) 20 mg Route: IVP; Site: right antecubital; kg 18:20 Drug: Zithromax (azithromycin) 500 mg Route: IVPB; Infused Over: 1 hrs; Site: right kg antecubital; 18:30 Drug: Albuterol HFA Inhaler 4 puffs Route: Inhalation; kg Outcome: 17:43 Decision to Hospitalize by Provider. pm1 19:56 Admitted to ICU accompanied by tech, via wheelchair, room 3, Report called to Edu hall RN 19:56 Condition: stable 19:56 Instructed on the need for admit. 20:11 Patient left the ED. isabel Signatures: Eli Bean ds1 Braeden Rodas, CRISSY CAST IRON DRAIN PIPE LAYER pm1 Brittni Mallory RN RN ca1 Adela Lindsey RN RN kg
--- NOTE | 2020-11-20 17:45 | EDPHYS ---
Physician Documentation [facility] Name: Whit Fowler Age: 45 yrs Sex: Female : 1975 Arrival Date: 11/20/2020 Time: 13:32 Bed 20 Private MD: ED Physician Wilberto Dennis HPI: 11/20 18:00 This 45 yrs old Female presents to ER via Ambulatory with complaints of pm1 Weakness, Chest Pain, Covid +. 18:00 The patient or guardian reports cough, with productive sputum, Clear, difficulty pm1 breathing, Shortness of breath, chest pain for 3 days with breathing. Onset: The symptoms/episode began/occurred 10 day(s) ago. Severity of symptoms: in the emergency department the symptoms are actually worse. Modifying factors: The symptoms are alleviated by nothing, the symptoms are aggravated by nothing. Associated signs and symptoms: Pertinent positives: chest pain, diarrhea, fever, body aches. The patient has been recently seen at the [facility] Emergency Department, last week, for similar complaints prescribed cough medication and albuterol. 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 Flu vaccine is up to date. - Social history:: Smoking status: Patient denies any tobacco usage or history of. ROS: 18:00 Eyes: Negative for injury, pain, redness, and discharge, ENT: Negative for injury, pm1 pain, and discharge, Neck: Negative for injury, pain, and swelling. 18:00 Back: Negative for injury and pain, : Negative for injury, bleeding, discharge, and swelling, MS/Extremity: Negative for injury and deformity, Skin: Negative for injury, rash, and discoloration, Neuro: Negative for headache, weakness, numbness, tingling, and seizure. 18:00 Constitutional: Positive for body aches, fever, poor PO intake. 18:00 Cardiovascular: Positive for chest pain. 18:00 Respiratory: Positive for cough, dyspnea on exertion, shortness of breath. 18:00 Abdomen/GI: Positive for diarrhea, Negative for abdominal pain, nausea and vomiting. 18:00 All other systems are negative. Exam: 18:00 Constitutional: This is a well developed, well nourished patient who is awake, alert, pm1 and in no acute distress. Head/Face: Normocephalic, atraumatic. 18:00 Skin: Warm, dry with normal turgor. Normal color with no rashes, no lesions, and no evidence of cellulitis. MS/ Extremity: Pulses equal, no cyanosis. Neurovascular intact. Full, normal range of motion. 18:00 Eyes: Exam is negative for acute changes, Periorbital structures: appear normal, no acute changes, Extraocular movements: no acute changes, Conjunctiva: no acute changes, no injection, Sclera: no acute changes, icterus, is not appreciated. 18:00 ENT: Exam is negative for acute changes, Mouth: Lips: normal, Oral mucosa: normal, pink and intact, moist, Posterior pharynx: no acute changes, Voice: no acute changes. 18:00 Cardiovascular: Rate: normal, Rhythm: regular, Pulses: no pulse deficits are appreciated, Edema: is not appreciated. 18:00 Respiratory: Exam negative for acute changes, respiratory distress, shortness of breath, Breath sounds: are clear throughout. 18:00 Abdomen/GI: Inspection: abdomen appears normal, Palpation: abdomen is soft and non-tender. 18:00 Neuro: Exam negative for acute changes, Orientation: is normal, Mentation: is normal, Motor: is normal, moves all fours. Vital Signs: 13:52 BP 107 / 81; Pulse 86; Resp 18 S; Temp 98.8(TE); Pulse Ox 97% on R/A; Weight 88.9 kg ca1 (M); Height 5 ft. 3 in. (160.02 cm) (R); Pain 8/10; 16:30 BP 104 / 73; Pulse 85; Resp 20; Pulse Ox 97% on 2 lpm NC; kg 17:00 BP 110 / 76; Pulse 84; Resp 20; Pulse Ox 96% on R/A; kg 17:30 BP 90 / 78; Pulse 84; Resp 20; Pulse Ox 95% on 2 lpm NC; kg 18:00 BP 106 / 76; Pulse 85; Resp 20; Pulse Ox 97% on R/A; kg 18:30 BP 116 / 84; Pulse 85; Resp 20; Pulse Ox 100% ; kg 19:00 BP 107 / 79; Pulse 83; Resp 20; Pulse Ox 100% ; kg 13:52 Body Mass Index 34.72 (88.90 kg, 160.02 cm) ca1 MDM: 16:12 Patient medically screened. [email or web address] 17:39 Physician consultation: Mary Carr MD in the emergency department to see patient at pm1 17:35, Will admit for observation. 17:40 Data reviewed: vital signs. Data interpreted: Pulse oximetry: on room air is 97 %. pm1 Interpretation: normal. 11/20 16:29 Order name: Basic Metabolic Panel [facility] 11/20 16:29 Order name: CBC with Diff; Complete Time: 18:00 [facility] 11/20 16:29 Order name: LFT's; Complete Time: 17:18 [facility] 11/20 16:29 Order name: Magnesium; Complete Time: 17:18 [facility] 11/20 16:29 Order name: NT PRO-BNP; Complete Time: 17:18 [facility] 11/20 16:29 Order name: PT-INR; Complete Time: 17:10 [facility] 11/20 16:29 Order name: Troponin (emerg Dept Use Only); Complete Time: 17:18 [facility] 11/20 16:29 Order name: Basic Metabolic Panel; Complete Time: 17:18 [facility] 11/20 16:39 Order name: Blood Culture Adult (2) [facility] 11/20 16:39 Order name: Ferritin [facility] 11/20 16:39 Order name: CRP [facility] 11/20 16:40 Order name: Blood Culture [facility] 11/20 17:09 Order name: CBC Smear Scan; Complete Time: 18:00 [facility] 11/20 17:35 Order name: Comprehensive Metabolic Panel [facility] 11/20 16:29 Order name: XRAY Chest (1 view) [facility] 11/20 16:29 Order name: CT Chest For PE Angio [facility] 11/20 17:35 Order name: C-Reactive Protein [facility] 11/20 17:35 Order name: C-Reactive Protein [facility] 11/20 17:35 Order name: CBC with Automated Diff [facility] 11/20 17:35 Order name: CBC with Automated Diff [facility] 11/20 17:35 Order name: Comprehensive Metabolic Panel [facility] 11/20 17:35 Order name: Ferritin [facility] 11/20 17:35 Order name: Ferritin [facility] 11/20 18:10 Order name: CT; Complete Time: 18:21 [facility] 11/20 19:46 Order name: RAD; Complete Time: 20:05 [facility] 11/20 13:56 Order name: EKG; Complete Time: 13:56 [facility] 11/20 13:56 Order name: EKG - Nurse/Tech; Complete Time: 13:58 ca1 11/20 16:29 Order name: Cardiac monitoring; Complete Time: 18:39 [facility] 11/20 16:29 Order name: IV Saline Lock; Complete Time: 18:39 [facility] 11/20 16:29 Order name: Labs collected and sent; Complete Time: 18:39 [facility] 11/20 16:29 Order name: O2 Per Protocol; Complete Time: 18:39 [facility] 11/20 16:29 Order name: O2 Sat Monitoring; Complete Time: 18:39 [facility] 11/20 17:35 Order name: CONS Physician Consult; Complete Time: 18:39 [facility] 11/20 17:35 Order name: Regular; Complete Time: 18:38 EDMS Administered Medications: 18:10 Drug: Rocephin (cefTRIAXone) 1 grams Route: IV; Rate: per protocol; Site: right kg antecubital; 18:10 Drug: Aspirin Chewable Tablet 324 mg Route: PO; kg 18:10 Drug: Tussionex Pennkinetic ER (chlorpheniramine-hydrocodone) Suspension 5 ml Route: PO;kg 18:18 Drug: Decadron - Dexamethasone 10 mg Route: IVP; Site: right antecubital; kg 18:20 Drug: Pepcid (famotidine) 20 mg Route: IVP; Site: right antecubital; kg 18:20 Drug: Zithromax (azithromycin) 500 mg Route: IVPB; Infused Over: 1 hrs; Site: right kg antecubital; 18:30 Drug: Albuterol HFA Inhaler 4 puffs Route: Inhalation; kg Disposition: 11/21 13:18 Co-signature as Attending Physician, Wilberto Dennis MD I agree with the assessment and [facility] plan of care. Disposition Summary: 11/20/20 17:43 Hospitalization Ordered Hospitalization Status: Observation pm1 Provider: Mary Carr pm1 Condition: Stable pm1 Problem: new pm1 Symptoms: have improved pm1 Bed/Room Type: Standard pm1 Location: Intensive Care Unit(11/20/20 17:46) tt3 Room Assignment: 3-(11/20/20 17:46) tt3 Diagnosis - Pneumonia due to SARS-associated coronavirus pm1 Forms: - Medication Reconciliation Form pm1 - SBAR form pm1 Signatures: Dispatcher [employer] EDWilberto Mart MD MD cha Marinas, Patrick, PARTY PLAN SALES DIRECTOR PARTY PLAN SALES DIRECTOR pm1 Brittni Mallory RN RN ca1 Jamari Alberts tt3 Adela Lindsey RN RN kg Corrections: (The following items were deleted from the chart) 11/20 17:46 17:43 Telemetry/MedSurg (observation) pm1 tt3 17:46 17:43 pm1 tt3 18:21 17:43 Coronavirus infection, unspecified pm1 pm1 18:22 17:44 Shortness of breath pm1 pm1
[2020-11-20 17:56] LABS: Platelet Estimate ADEQ; White Blood Cell Scan OK (OK)
[2020-11-20 17:57] LABS: Blood Morphology Comment NOT SEEN (NOT SEEN)
[2020-11-20] MEDS ORDERED: NA CHLORIDE 0.9% 1,000 ML IV SCH (18:00)
[2020-11-20] MEDS ORDERED: ASPIRIN 81 MG CHEWABLE TABLET ONE (18:02)
[2020-11-20] MEDS ORDERED: dexAMETHasone 10 MG/ML VIAL ONE (18:02)
[2020-11-20] MEDS ORDERED: HYDROCODONE/CHLORPHEN 5 ML/OSYR ONE (18:02)
[2020-11-20] MEDS ORDERED: CEFTRIAXONE/SWI 1gm 1 GM/10 ML SYR ONE (18:03)
[2020-11-20] MEDS ORDERED: AZITHROMYCIN 500 MG INJ IVPB ONE (18:03)
[2020-11-20] MEDS ORDERED: NA CHLORIDE 0.9% 250 ML ONE (18:03)
--- NOTE | 2020-11-20 18:09 | RAD REPORT ---
EXAM DESCRIPTION: CT - Chest For Pe Angio - 11/20/2020 5:53 pm CLINICAL HISTORY: Cough;Chest pain;Dyspnea COMPARISON: Chest For Pe Angio dated 02/29/2020 TECHNIQUE: Dynamically enhanced 3 mm thick images of the chest were obtained during administration o f approximately 150mL Isovue 370 IV contrast. Coronal and oblique MIP reconstruction images were gene rated and reviewed. Exam utilizes a protocol to evaluate the pulmonary arterial tree. Imaging was rep eated due to excessive motion on the initial acquisition. All CT scans are performed using dose optimization technique as appropriate and may include automated exposure control or mA/KV adjustment according to patient size. FINDINGS: No pulmonary emboli are identified. The aorta as imaged shows no acute or suspicious finding. No pericardial thickening or effusion. Extensive bilateral, primarily peripheral ground-glass opacification seen. In the current clinical en vironment, primary consideration would be a COVID-19 pneumonia. This needs correlation with testing/h istory. No cavitation or suspicious mass. Non COVID viral infiltrates are possible. Noninfectious teresa eolar edema would be additional possibility. No pleural effusion or pleural thickening. No mediastinal or hilar suspicious masses. No chest wall masses or abnormal axillary lymphadenopathy. IMPRESSION: No pulmonary emboli identified. Bilateral ground-glass opacification is present. In the current clinical environment, primary conside ration would be COVID-19 pneumonia. Non COVID viral infiltrates are also possible. Noninfectious alve olar edema from numerous etiologies can give a similar pattern.
--- NOTE | 2020-11-20 19:45 | RAD REPORT ---
EXAM DESCRIPTION: RAD - Chest Single View - 11/20/2020 7:01 pm CLINICAL HISTORY: COUGH COMPARISON: Portable November 18 TECHNIQUE: AP portable chest image was obtained 11/20/2020 7:01 pm . FINDINGS: Lung volumes are low. Interstitial and alveolar opacities are present findings are slightl y worse than the November 18 imaging. In the current clinical environment, bilateral COVID-19 pneumonia wo uld be a primary consideration and needs correlation with testing. Non COVID viral pneumonia is are p ossible as well. Pattern is not typical for bacterial pneumonia or typical pulmonary edema presentati on. Heart and vasculature are normal. No measurable pleural effusion and no pneumothorax. No acute mary ellen [place] abnormality seen. No acute aortic findings suspected. IMPRESSION: Bilateral airspace opacities in the lung alvarez along with interstitial opacification. COVID-19 pneumonia would be a primary consideration and needs correlation with clinical presentation and testing.
[2020-11-20 20:12] LABS: C-Reactive Protein 80.9 mg/L (<3.00); Ferritin 409.2 ng/mL (8-388)
[2020-11-20] MEDS ORDERED: METHYLPREDNISOLONE 40 MG INJ IV SCH (21:00)
[2020-11-20] MEDS: CODEINE 30MG/APAP 300MG TAB PO SCH ×2 (21:04→21:26)
[2020-11-20] MEDS: BENZONATATE 100 MG CAP PO PRN (21:08)
[2020-11-20 21:39] VITALS: BMI 34.7
[2020-11-20] MEDS ORDERED: FAMOTIDINE 20 MG/2 ML VIAL IV SCH (23:00)
[2020-11-20] MEDS ORDERED: MORPHINE 2 MG/ML SYR IV ONE (23:20)
[2020-11-20] MEDS: APIXABAN 5 MG TABLET PO SCH (23:28)
--- NOTE | 2020-11-20 23:31 | P.HP ---
Certification for Inpatient Patient admitted to: Inpatient With expected LOS: >2 Midnights Patient will require the following post-hospital care: None Practitioner: I am a practitioner with admitting privileges, knowledge of patient current condition, hospital course, and medical plan of care. Services: Services provided to patient in accordance with Admission requirements found in Title 42 Section 412.3 of the Code of Federal Regulations Patient History Date of Service: 11/20/20 Reason for admission: COVID-19 pneumonia History of Present Illness: Patient is a 45yo who was admitted to the hospital with dyspnea and chest discomfort; patient was found to be COVID-19 positive a few days ago. Patient has got worse over the last few days. She has been very fatigued and she feels dehydrated. She has been having persisting coughing with dyspnea. She is having pain on taking deep inspiration. She came into the emergency room because she was feeling worse. She was brought into the emergency room by her sister who is a nurse at our hospital and the night time structural mill supervisor. Patient's inflammatory markers were elevated. Her room air O2 sats were between 91-95%. Her respiratory rate was in the mid 20s. Her CT scan showed alveolar edema. This is most likely related to could a pneumonia. She had priorly also having some pleuritic chest pain. She is having pain on deep inspiration. Her oxygen saturations drop into the high 80s when she starts coughing. She does recover. Decision was made to admit her to the hospital for further evaluation. Allergies No Known Allergies Allergy (Verified 11/20/20 21:02) Home Medications: Lisinopril [Zestril] 10 mg PO DAILY 11/20/20 - Past Medical/Surgical History Has patient received pneumonia vaccine in the past: No Diabetic: No -: Hypertension -: Hypothyroidism -: Gallbladder Sx - Family History Father Medical History: Hypertension Mother Medical History: Hypertension, Diabetes - Social History Smoking Status: Never smoker Alcohol use: No CD- Drugs: No Caffeine use: Yes Place of Residence: Home Review of Systems 10-point ROS is otherwise unremarkable Physical Examination - Vital Signs Temperature: 98.8 F Blood Pressure: 107/79 Pulse: 83 Respirations: 20 Pulse Ox (%): 91 - Physical Exam General: Alert, In no apparent distress, Oriented x3, Cachectic HEENT: Atraumatic, PERRLA, Mucous membr. moist/pink, EOMI, Sclerae nonicteric Neck: Supple, 2+ carotid pulse no bruit, No LAD, Without JVD or thyroid abnormality Respiratory: Diminished, Crackles/rales Cardiovascular: Regular rate/rhythm, Normal S1 S2, Systolic murmur Gastrointestinal: Normal bowel sounds, Soft and benign, Non-distended, No tenderness Musculoskeletal: No clubbing, No swelling, No tenderness Integumentary: No rashes Neurological: Normal gait, Normal speech, Normal tone, Sensation intact, Cranial nerves 3-12 intact, Normal affect, Abnormal strength Lymphatics: No axilla or inguinal lymphadenopathy - Studies Laboratory Data (last 24 hrs) 11/20/20 16:40: PT 12.3, INR 1.07 11/20/20 16:40: WBC 7.40, Hgb 13.1, Hct 38.5, Plt Count 174 11/20/20 16:40: Sodium 137, Potassium 4.1, BUN 11, Creatinine 0.96, Glucose 95, Magnesium 2.4, Total Bilirubin 0.6, AST 83 H, ALT 89 H, Alkaline Phosphatase 167 H Assessment & Plan - Problems (Diagnosis) (1) Pneumonia due to COVID-19 virus Current Visit: Yes Status: Acute (2) Pleuritic chest pain Current Visit: Yes Status: Acute - Plan 1. Continue with IV steroids & Baricitinib 2. Monitor inflammatory markers 3. Repeat chest x-ray is symptoms are progressively worsening 4. O2 per protocol 5. Pulmonary consultation 6. Continue with albuterol inhaler therapy; also supportive care; cough suppressant; prone positioning & incentive spirometer 7. GI and DVT prophylaxis Discharge Plan: Home Plan to discharge in: Greater than 2 days - Advance Directives Does patient have a Living Will: No Does patient have a Durable POA for Healthcare: No - Code Status/Comfort Care Code Status Assessed: Yes Code Status: Full Code Critical Care: No Time Spent Managing PTS Care (In Minutes): 45
[2020-11-20] MEDS ORDERED: SODIUM CHLORIDE 0.9% 10ML INJ IV PRN (23:39)
[2020-11-20] MEDS ORDERED: PANTOPRAZOLE 40 MG INJ IVP ONE (23:39)
[2020-11-20] MEDS ORDERED: PANTOPRAZOLE 40 MG INJ ONE (23:55)
[2020-11-21] MEDS: MORPHINE 2 MG/ML SYR IV PRN ×2 (04:15→23:19)
[2020-11-21 06:11] LABS: Absolute Lymphocytes (CBC) 0.3 K/uL (0.7-4.9); Basophils % 0.1 % (0-1.3); Hematocrit 35.3 % (36.0-45.0); Lymphocytes % 3.9 % (15.3-44.8); MPV 10.3 fL (7.6-11.3); RBC Red Blood Cell Count 4.17 M/uL (3.86-4.86)
[2020-11-21 06:22] LABS: Albumin 2.6 g/dL (3.4-5.0); Bilirubin Total 0.8 mg/dL (0.2-1.0); C-Reactive Protein 91.4 mg/L (<3.00); Ferritin 1381.6 ng/mL (8-388); Potassium 4.2 mmol/L (3.5-5.1); Protein, Total 6.7 g/dL (6.4-8.2)
[2020-11-21] MEDS ORDERED: PANTOPRAZOLE 40MG TABLET PO SCH (06:30)
[2020-11-21] MEDS ORDERED: TRAMADOL HCL 50 MG TAB PO PRN (07:32)
[2020-11-21] MEDS ORDERED: ALPRAZOLAM 0.25 MG TABLET PO PRN (07:32)
--- NOTE | 2020-11-21 07:45 | P.PN ---
Subjective Date of Service: 11/21/20 Chief Complaint: COVID-19 pneumonia Subjective: Other (Patient now on 3 L per nasal cannula.) Physical Examination - Vital Signs Temperature: 97.5 F Blood Pressure: 98/76 Pulse: 60 Respirations: 19 Pulse Ox (%): 91 - Studies Laboratory Data (last 24 hrs) 11/20/20 16:40: PT 12.3, INR 1.07 11/20/20 16:40: WBC 7.40, Hgb 13.1, Hct 38.5, Plt Count 174 11/20/20 16:40: Sodium 137, Potassium 4.1, BUN 11, Creatinine 0.96, Glucose 95, Magnesium 2.4, Total Bilirubin 0.6, AST 83 H, ALT 89 H, Alkaline Phosphatase 167 H Assessment & Plan Discharge Plan: Home Physician Review Additional Text: Physical exam: General: Alert, no acute distress. Currently on 3 L per nasal cannula. HEENT: Neck supple. Respiratory: Patient does not appear in any respiratory distress. Currently on 3 L per nasal cannula. Cardiovascular: Regular rate and rhythm on monitor. Gastrointestinal: Soft, no distention. No pain noted Musculoskeletal: No clubbing, No swelling, No tenderness Integumentary: No rashes Neurological: Good range of motion. No focal deficits. Impression: Chest pain secondary to bilateral Covid 19 pneumonia with hypoxia Elevated liver function may be related to medication Hypertension Hypothyroidism Obesity, BMI 34.7 Plan: Chest pain secondary to bilateral Covid 19 pneumonia with hypoxia: Patient now on 3 L per nasal cannula. Continue to wean off. Will increase IV steroids to 3 times a day. Patient remains on Eliquis for DVT prophylaxis. LFTs elevated. This may be related to Baricitinib. Will discuss with Pharmacy and Pulmonary. May need to hold medication. Will check Tylenol level, Hepatitis panel and Liver US. Will need to monitor and trend LFTs. Encourage proning, ambulation, and incentive spirometer. Await further recommendations from pulmonology. Will start vitamin supplementation. Will monitor closely. Anticipate improvement over the next 1 to 3 days. Patient will likely require home oxygen at discharge. Elevated liver function may be related to medication: This may be related to Baricitinib. Will discuss with pharmacy and pulmonary. Hold medication at this time. Will check Tylenol level, hepatitis panel and liver ultrasound. Continue to monitor and trend LFTs. Hypertension: Blood pressure stable off medication at this time. Hypothyroidism: Will need to restart medication but need to verify home medication. Obesity, BMI 34.7: Will address lifestyle modification education. DVT prophylaxis: Eliquis CODE STATUS: Full code Advanced care [email or web address] minutes: Patient desires to go home at discharge Time Spent Managing Pts Care (In Minutes): 55
[2020-11-21] MEDS: ASCORBIC ACID 500 MG TABLET PO SCH ×4 (08:23→19:45)
[2020-11-21] MEDS: THIAMINE HCL 100 MG TABLET PO SCH ×2 (08:23→19:45)
[2020-11-21] MEDS: METHYLPREDNISOLONE 125 MG INJ IV SCH ×3 (08:23→19:45)
[2020-11-21] MEDS: ZINC SULFATE 220 MG CAP PO SCH (08:23)
[2020-11-21] MEDS: VITAMIN D 1000 UNIT TAB PO SCH (08:23)
[2020-11-21] MEDS: APIXABAN 5 MG TABLET PO SCH (08:23)
[2020-11-21] MEDS ORDERED: PROMETHAZINE-DM 5 ML OSYR PO PRN (08:55)
--- NOTE | 2020-11-21 08:57 | P.CNS ---
Date of Consult: 11/21/20 Reason for Consult: Respiratory failure from rubio virus pneumonia Chief Complaint: COVID-19 pneumonia History of Present Illness: Patient is 45 years of age admitted with respiratory failure from rubio virus she has not been vaccinated in feeling fatigued dehydrated persistent coughing dyspnea liver function tests are markedly elevated apparently she has was taking acetaminophen at home Allergies No Known Allergies Allergy (Verified 11/20/20 21:02) Home Medications: Lisinopril [Zestril] 10 mg PO DAILY 11/20/20 Synthroid 11/20/20 - Past Medical/Surgical History Diabetic: No -: Hypertension -: Hypothyroidism -: Gallbladder Sx - Family History Father Medical History: Hypertension Mother Medical History: Hypertension, Diabetes - Social History Smoking Status: Current some day smoker Alcohol use: No CD- Drugs: No Caffeine use: Yes Place of Residence: Home Review of Systems General: Weakness Respiratory: Cough, Shortness of Breath Physical Examination Temp Pulse Resp BP Pulse Ox 97.5 F 60 19 98/76 91 11/21/20 07:50 11/21/20 07:50 11/21/20 07:50 11/21/20 07:50 11/21/20 07:50 Laboratory Data (last 24 hrs) 11/20/20 16:40: PT 12.3, INR 1.07 11/20/20 16:40: WBC 7.40, Hgb 13.1, Hct 38.5, Plt Count 174 11/20/20 16:40: Sodium 137, Potassium 4.1, BUN 11, Creatinine 0.96, Glucose 95, Magnesium 2.4, Total Bilirubin 0.6, AST 83 H, ALT 89 H, Alkaline Phosphatase 167 H - Problems (1) Pneumonia due to COVID-19 virus Current Visit: Yes Status: Acute Plan: Patient is 45 years of age admitted with respiratory failure from coronal virus complaining of severe persistent coughing spells labs reviewed liver function tests have been markedly elevated patient has been taking acetaminophen at home change to Lovenox Dc Eliquis oxygenation satisfactory immunotherapy is contraindicated due to her abnormal liver function testing liver ultrasound pending CT scan shows bilateral interstitial changes
[2020-11-21] MEDS ORDERED: ENOXAPARIN 40 MG/0.4 ML SQ SCH ×2 (09:00→21:00)
[2020-11-21] MEDS ORDERED: BARICITINIB 2 MG TABLET PO SCH (09:00)
[2020-11-21] MEDS: DULERA 200/5 (MOMETASONE/FORMOTEROL) INHALER IH SCH ×2 (09:59→19:45)
[2020-11-21] MEDS: FAMOTIDINE 20 MG TAB PO SCH ×2 (09:59→19:45)
--- NOTE | 2020-11-21 10:30 | EKG ---
Test Date: 2020-11-20 Test Time: 14:01:54 Button Grader: SAPNA MEASUREMENT RESULTS: Intervals: Rate: 83 [place]: 146 QRSD: 68 QT: 370 QTc: 434 [place]: P: 21 [place]: 146 QRS: 29 T: 33 INTERPRETIVE STATEMENTS: Normal sinus rhythm Normal ECG Compared to ECG 02/29/2020 21:59:09 No significant changes Electronically Signed On 11-21-20 10:29:14 CDT by Goldy Kearns
[2020-11-21] MEDS: BENZONATATE 100 MG CAP PO PRN (12:14)
--- NOTE | 2020-11-21 12:56 | RAD REPORT ---
EXAM DESCRIPTION: US - Liver Only - 11/21/2020 12:48 pm CLINICAL HISTORY: Elevated LFTs COMPARISON: No comparisons FINDINGS: The liver demonstrates diffuse fatty infiltration.No focal liver lesion or intrahepatic bi liary dilatation.No evidence of portal vein thrombosis. Spleen is normal size measuring 10 cm. IMPRESSION: Fatty liver.
[2020-11-21] MEDS ORDERED: FAMOTIDINE 20 MG TAB PO ONE (23:00)
[2020-11-22 03:55] LABS: Absolute Lymphocytes (CBC) 0.4 K/uL (0.7-4.9); Basophils % 0.3 % (0-1.3); Hematocrit 33.9 % (36.0-45.0); Lymphocytes % 3.8 % (15.3-44.8); MPV 10.5 fL (7.6-11.3); RBC Red Blood Cell Count 3.95 M/uL (3.86-4.86)
[2020-11-22 04:19] VITALS: TEMP 97.6
[2020-11-22 04:26] LABS: Albumin 2.5 g/dL (3.4-5.0); Bilirubin Total 0.3 mg/dL (0.2-1.0); C-Reactive Protein 36.7 mg/L (<3.00); Ferritin 651.2 ng/mL (8-388); Magnesium 2.5 mg/dL (1.8-2.4); Potassium 4.3 mmol/L (3.5-5.1); Protein, Total 6.5 g/dL (6.4-8.2)
--- NOTE | 2020-11-22 05:46 | P.PN ---
Subjective Date of Service: 11/22/20 Chief Complaint: COVID-19 pneumonia Subjective: Other (Patient reports improvement. Patient desires to go home today. Currently on 2 L per nasal cannula.) Physical Examination - Vital Signs Temperature: 97.6 F Blood Pressure: 89/61 Pulse: 54 Respirations: 22 Pulse Ox (%): 95 Assessment & Plan Discharge Plan: Home Plan to discharge in: 24 Hours Physician Review Additional Text: Liver US: COMPARISON: No comparisons FINDINGS: The liver demonstrates diffuse fatty infiltration.No focal liver lesion or intrahepatic biliary dilatation.No evidence of portal vein thrombosis. Spleen is normal size measuring 10 cm. IMPRESSION: Fatty liver. Physical exam: General: Alert, no acute distress. Currently on 2 L per nasal cannula. HEENT: Neck supple. Respiratory: Patient does not appear in any respiratory distress. Currently on 2 L per nasal cannula. Cardiovascular: Regular rate and rhythm on monitor. Gastrointestinal: Soft, no distention. No pain noted Musculoskeletal: No clubbing, No swelling, No tenderness Integumentary: No rashes Neurological: Good range of motion. No focal deficits. Impression: Chest pain secondary to bilateral Covid 19 pneumonia with hypoxia Elevated liver function may be related to medication with underlying fatty liver Hypertension Hypothyroidism Obesity, BMI 34.7 Plan: Chest pain secondary to bilateral Covid 19 pneumonia with hypoxia: Patient reports improvement. Currently on 2 L per nasal cannula. CRP and ferritin improved. Continue to monitor and trend levels. Patient was taken off Baricitinib yesterday due to elevated liver function test. LFTs improved. Liver ultrasound shows fatty liver. Encourage proning, ambulation, and inc entive spirometer. Continue IV steroids and vitamin supplementation. Will discuss with pulmonology. Patient desires to go home today. We will monitor the patient closely. If able to ambulate well without significant desaturations will consider discharge as early as today. Social work to help arrange for home oxygen. Await further recommendations from pulmonology. Elevated liver function may be related to medication with underlying fatty liver: Baricitinib was discontinued. LFTs show improvement. Fatty liver noted on ultrasound. Continue to trend LFTs. Hypertension: Blood pressure stable off medication. Continue to hold blood pressure medication Hypothyroidism: Continue with medication. Obesity, BMI 34.7: Will address lifestyle modification education. DVT prophylaxis: Lovenox CODE STATUS: Full code Advanced care [id number] minutes: Patient desires to go home at discharge Time Spent Managing Pts Care (In Minutes): 55
--- NOTE | 2020-11-22 07:40 | P.DS ---
Admission Date: 11/20/20 Discharge Date: 11/22/20 Disposition: ROUTINE DISCHARGE Discharge Condition: GOOD Reason for Admission: COVID-19 pneumonia Consultations: Pulmonary-Dr. Rivero Procedures: CT Chest: FINDINGS: No pulmonary emboli are identified. The aorta as imaged shows no acute or suspicious finding. No pericardial thickening or effusion. Extensive bilateral, primarily peripheral ground-glass opacification seen. In the current clinical environment, primary consideration would be a COVID-19 pneumonia. This needs correlation with testing/history. No cavitation or s uspicious mass. Non COVID viral infiltrates are possible. Noninfectious alveolar edema would be additional possibility. No pleural effusion or pleural thickening. No mediastinal or hilar suspicious masses. No chest wall masses or abnormal axillary lymphadenopathy. IMPRESSION: No pulmonary emboli identified. Bilateral ground-glass opacification is present. In the current clinical environment, primary consideration would be COVID-19 pneumonia. Non COVID viral infiltrates are also possible. Noninfectious alveolar edema from numerous etiologies can give a similar pattern. Liver US: COMPARISON: No comparisons FINDINGS: The liver demonstrates diffuse fatty infiltration.No focal liver lesion or intrahepatic biliary dilatation.No evidence of portal vein thrombosis. Spleen is normal size measuring 10 cm. IMPRESSION: Fatty liver. Medical problem list: Chest pain secondary to bilateral Covid 19 pneumonia with hypoxia Elevated liver function may be related to medication with underlying fatty liver Hypertension Hypothyroidism Obesity, BMI 34.7 Brief History of Present Illness: 45-year-old female presented to the emergency room with chest pain, shortness of breath. Patient was positive for COVID-19 a few days ago. Her symptoms have worsened. In the ER oxygen saturations appeared normal. CT scan showed significant pneumonia. Patient was admitted for treatment. Hospital Course: Patient presented with chest pain secondary to bilateral COVID-19 pneumonia with hypoxia. Patient had been tested positive prior to admission. Her symptoms required admission. During the course of her stay patient received IV steroids and baricitinib. Baricitinib had to be discontinued due to elevated liver function. Liver ultrasound showed fatty liver. Liver function improved once taken off baricitinib. Her condition has improved. At discharge she will continue with home oxygen to maintain sats above 93%. Patient currently on 2 L per nasal cannula. At discharge she will continue with prednisone 20 mg 1 pill twice daily for 7 days then 1 pill once daily for 7 days. The patient will be provided Tessalon Perles 100 mg 3 times a day as needed for cough, aspirin 81 mg daily, and albuterol 2 puffs 3 times a day as needed for shortness of breath. The patient will continue with vitamin supplementation including zinc 220 mg daily, thiamine 100 mg 1 pill twice daily, vitamin C 500 mg 3 times a day, and vitamin D 2000 units daily. Patient encouraged to continue with incentive spirometer, proning and ambulation. Recommend to continue CDC guidelines on isolation, facemask use, social distancing and handwashing. Recommend follow-up with pulmonology within 1 week to follow-up hospitalization and continue her care. As mentioned above patient with elevated liver function likely related to medicationbaricitinib. This was discontinued with noted improvement. Liver ultrasound showed fatty liver. Education on fatty liver provided. This can be monitored closely as an outpatient. Recommend to recheck labCMP in 1 week to monitor resolution. Patient with history of hypertension. Blood pressure stable off medication. Recommend to continue to hold blood pressure medication at discharge. Recommend to monitor blood pressure daily. Recommend to maintain blood pressure less than 130/80. If blood pressures remain above 140/90 consistently then patient may need to restart her medication. For now this can be further monitored and adjusted by her PCP. Recommend follow-up with PCP to further address. Patient with hypothyroidism. At discharge she will continue with her medication. Vital Signs/Physical Exam: Temp Pulse Resp BP Pulse Ox 97.6 F 54 22 H 89/61 L 95 11/22/20 07:39 11/22/20 07:39 11/22/20 07:39 11/22/20 07:39 11/22/20 07:39 General: Alert, In no apparent distress, Oriented x3, Cooperative HEENT: Atraumatic Neck: Supple Respiratory: Other (She is on 2 L per nasal cannula. No respiratory distress noted.) Cardiovascular: Normal pulses, Regular rate/rhythm Gastrointestinal: Normal bowel sounds, No tenderness, No masses, No rebound, No guarding Integumentary: No tenderness/swelling Neurological: Normal speech, Normal strength at 5/5 x4 extr, Normal tone, Normal affect Laboratory Data at Discharge: WBC 11.90 K/uL (4.3-10.9) H D 11/22/20 03:12 Hgb 11.6 g/dL (12.0-15.0) L 11/22/20 03:12 Hct 33.9 % (36.0-45.0) L 11/22/20 03:12 Plt Count 213 K/uL (152-406) 11/22/20 03:12 PT 12.3 SECONDS (9.5-12.5) 11/20/20 16:40 INR 1.07 11/20/20 16:40 Sodium 139 mmol/L (136-145) 11/22/20 03:12 Potassium 4.3 mmol/L (3.5-5.1) 11/22/20 03:12 BUN 16 mg/dL (7-18) 11/22/20 03:12 Creatinine 0.87 mg/dL (0.55-1.3) 11/22/20 03:12 Glucose 160 mg/dL (74-106) H 11/22/20 03:12 Magnesium 2.5 mg/dL (1.8-2.4) H 11/22/20 03:12 Total Bilirubin 0.3 mg/dL (0.2-1.0) 11/22/20 03:12 AST 145 U/L (15-37) H D 11/22/20 03:12 ALT 273 U/L (12-78) H D 11/22/20 03:12 Alkaline Phosphatase 316 U/L (45-117) H 11/22/20 03:12 Troponin I < 0.02 ng/mL (0.0-0.045) 11/20/20 23:43 Home Medications: Lisinopril [Zestril] 10 mg PO DAILY 11/20/20 Synthroid 11/20/20 Albuterol Inhaler [Ventolin Inhaler*] 2 puff IH Q6H PRN #1 hfa.aer.ad 11/22/20 Ascorbate Calcium [Vitamin C] 500 mg PO TID #90 tablet 11/22/20 Aspirin [Aspirin EC 81 MG] 81 mg PO DAILY #30 tablet. 11/22/20 Benzonatate [Tessalon Perle] 100 mg PO TID PRN #10 cap 11/22/20 Cholecalciferol (Vitamin D3) [Vitamin D 1000 Iu Tab] 2,000 unit PO DAILY #60 tab 11/22/20 Thiamine HCl 100 mg PO BID #60 tablet 11/22/20 Zinc Sulfate [Zinc Sulfate*] 220 mg PO DAILY #30 cap 11/22/20 predniSONE [Prednisone*] 20 mg PO SEECOM #21 tab 11/22/20 New Medications: Aspirin [Aspirin EC 81 MG] 81 mg PO DAILY #30 tablet. predniSONE [Prednisone*] 20 mg PO SEECOM #21 tab Benzonatate [Tessalon Perle] 100 mg PO TID PRN #10 cap PRN Reason: Cough Thiamine HCl 100 mg PO BID #60 tablet Albuterol Inhaler [Ventolin Inhaler*] 2 puff IH Q6H PRN #1 hfa.aer.ad PRN Reason: Shortness Of Breath Ascorbate Calcium [Vitamin C] 500 mg PO TID #90 tablet Cholecalciferol (Vitamin D3) [Vitamin D 1000 Iu Tab] 2,000 unit PO DAILY #60 tab Zinc Sulfate [Zinc Sulfate*] 220 mg PO DAILY #30 cap Physician Discharge Instructions: Patient presented with chest pain secondary to bilateral COVID-19 pneumonia with hypoxia. Patient had been tested positive prior to admission. Her symptoms required admission. During the course of her stay patient received IV steroids and baricitinib. Baricitinib had to be discontinued due to elevated liver function. Liver ultrasound showed fatty liver. Liver function improved once taken off baricitinib. Her condition has improved. At discharge she will continue with home oxygen to maintain sats above 93%. Patient currently on 2 L per nasal cannula. At discharge she will continue with prednisone 20 mg 1 pill twice daily for 7 days then 1 pill once daily for 7 days. The patient will be provided Tessalon Perles 100 mg 3 times a day as needed for cough, aspirin 81 mg daily, and albuterol 2 puffs 3 times a day as needed for shortness of breath. The patient will continue with vitamin supplementation including zinc 220 mg daily, thiamine 100 mg 1 pill twice daily, vitamin C 500 mg 3 times a day, and vitamin D 2000 units daily. Patient encouraged to continue with incentive spirometer, proning and ambulation. Recommend to continue CDC guidelines on isolation, facemask use, social distancing and handwashing. Recommend follow-up with pulmonology within 1 week to follow-up hospitalization and continue her care. As mentioned above patient with elevated liver function likely related to medicationbaricitinib. This was discontinued with noted improvement. Liver ultrasound showed fatty liver. Education on fatty liver provided. This can be monitored closely as an outpatient. Recommend to recheck labCMP in 1 week to monitor resolution. Patient with history of hypertension. Blood pressure stable off medication. Recommend to continue to hold blood pressure medication at discharge. Recommend to monitor blood pressure daily. Recommend to maintain blood pressure less than 130/80. If blood pressures remain above 140/90 consistently then patient may need to restart her medication. For now this can be further monitored and adjusted by her PCP. Recommend follow-up with PCP to further address. Patient with hypothyroidism. At discharge she will continue with her medication. Diet: AHA Activity: Ad keily Followup: NONE,NONE [Primary Care Provider] - Time spent managing pt's care (in minutes): 55
[2020-11-22] MEDS: METHYLPREDNISOLONE 125 MG INJ IV SCH ×2 (08:34→14:17)
[2020-11-22] MEDS: VITAMIN D 1000 UNIT TAB PO SCH (08:35)
[2020-11-22] MEDS: ASCORBIC ACID 500 MG TABLET PO SCH ×2 (08:35→14:17)
[2020-11-22] MEDS: THIAMINE HCL 100 MG TABLET PO SCH (08:35)
[2020-11-22] MEDS: ZINC SULFATE 220 MG CAP PO SCH (08:35)
[2020-11-22] MEDS: DULERA 200/5 (MOMETASONE/FORMOTEROL) INHALER IH SCH (08:35)
[2020-11-22] MEDS: FAMOTIDINE 20 MG TAB PO SCH (08:35)
[2020-11-22 10:48] VITALS: O2SAT 86
--- NOTE | 2020-11-22 12:09 | P.PN ---
Subjective Date of Service: 11/22/20 Chief Complaint: COVID-19 pneumonia Subjective: Improving (He is improving and nasal cannula oxygen rate to go home) Review of Systems General: Weakness Respiratory: Cough, Shortness of Breath Physical Examination - Vital Signs Temperature: 97.6 F Blood Pressure: 89/61 Pulse: 54 Respirations: 22 Pulse Ox (%): 95 Assessment & Plan - Problems (Diagnosis) (1) Pneumonia due to COVID-19 virus Current Visit: Yes Status: Acute Plan: Patient is doing much better plan to discharge home on prednisone 20 b.i.d. for 10 days low-dose aspirin liver function tests ferritin all improving patient qualifies for home O2 for with me in 2 weeks
--- NOTE | 2020-11-22 16:14 | EKG ---
Test Date: 2020-11-20 Test Time: 23:24:57 [employer] Model: RT-O MEASUREMENT RESULTS: Intervals: Rate: 65 PA: 152 QRSD: 84 QT: 412 QTc: 428 [place]: P: 35 PA: 152 QRS: 3 T: 11 INTERPRETIVE STATEMENTS: Normal sinus rhythm Minimal voltage criteria for LVH, may be normal variant Borderline ECG Compared to ECG 11/20/2020 14:01:54 Left ventricular hypertrophy now present Electronically Signed On 11-22-20 16:09:02 CDT by Goldy Kearns
[2020-11-22 18:12] VITALS: BP 125/84
[2020-11-23 18:49] LABS: HBsAG Nonreactive (Nonreactive)
== END 2020-11-22 17:25 | disposition home or self-care (01) | DRG 177 ==
LOC: ER 13:31 → ERHOLD 17:32 → OBSVTOIN 17:32 → 3RD-ICU 19:39
PROVIDERS: ADMIT Hospitalist; ATTEND Hospitalist
DX: U07.1 COVID-19 (principal); J12.82 Pneumonia due to coronavirus disease 2019; J96.01 Acute respiratory failure with hypoxia; I10 Essential (primary) hypertension; E03.9 Hypothyroidism, unspecified; E66.9 Obesity, unspecified; Z68.34 Body mass index [BMI] 34.0-34.9, adult; K76.0 Fatty (change of) liver, not elsewhere classified; R79.89 Other specified abnormal findings of blood chemistry; T50.995A Adverse effect of other drugs, medicaments and biological substances, initial encounter; Y92.230 Patient room in hospital as the place of occurrence of the external cause
CPT/HCPCS: 36415; 71045; 71275; 76705; 80048; 80053; 80074; 80076; 80329; 82728; 83735; 83880; 84484; 85025; 85610; 86140; 87040; 93005; 96374; 96375; 99285; C9113; J0456; J0696; J1100; J1650; J2270; J2405; J2920; J2930; J7030; J7050; J7606; Q9967